=== PATIENT | male | born 1995 | race Caucasian/White ===

== ENCOUNTER 2017-01-28 02:07 | Emergency (ER) | payer OTHER ==
[~2017-01-28] VITALS: Ht 177.8 cm; Wt 66.0 kg
[2017-01-28 02:09] VITALS: TEMP 37.4; O2SAT 98; Ht 177.8 cm; Wt 66.0 kg
[2017-01-28] MEDS ORDERED: KETOROLAC TROMETHAMINE 30 MG/ML VIAL IV STA (02:31)
[2017-01-28] MEDS ORDERED: ACETAMINOPHEN 500 MG TAB PO STA (02:31)
[2017-01-28 02:40] VITALS: O2SAT 98
[2017-01-28] MEDS ORDERED: SODIUM CHLORIDE 0.9% 1000ML 1,000 ML IV ONE (02:45)
[2017-01-28 03:03] LABS: BASO % 0.1 %; BASO ABS # 0.01 K/uL (0-0.2); COMPLETE YES; EOS % 0.3 %; HEMATOCRIT 43.3 % (42-52); IG% 0.3 %; LYMPH % 5.3 %; LYMPH ABS # 0.76 K/uL (1.2-3.4); MEAN CELL VOLUME 79.3 fL (80-100); MEAN CORPUSCULAR HEMOGLOBIN 25.6 pg (25-34); MEAN CORPUSCULAR HGB CONC 32.3 g/dl (32-36); MEAN PLATELET VOLUME 11.1 fL (7.4-10.4); MONO % 7.2 %; NEUT % 86.8 %; PLATELET COUNT 258 K/uL (130-400); RED BLOOD COUNT 5.46 M/uL (4.7-6.1)
[2017-01-28] MEDS ORDERED: DEXT1CAP9 PO (03:18)
[2017-01-28] MEDS ORDERED: DEXT1CAP8 PO (03:18)
[2017-01-28] MEDS ORDERED: IBUP-1050 PO (03:18)
[2017-01-28 03:22] LABS: BUN/CREATININE RATIO 8.7 (10-20); CALCIUM 9.1 mg/dl (8.5-10.1); CREATININE 1.1 mg/dl (0.60-1.40); POTASSIUM 3.9 mmol/L (3.5-5.1)
[2017-01-28 04:12] VITALS: BP 97/62; PULSE 86
[2017-01-28] MEDS ORDERED: AZIT250T PO (04:27)
[2017-01-28] MEDS ORDERED: AZITHROMYCIN 250 MG TAB PO ONE (04:30)
--- NOTE | 2017-01-28 06:35 | DIAGNOSTIC IMAGING REPORT ---
CT HEAD WITHOUT CONTRAST (CT) CLINICAL HISTORY: Syncope COMPARISON STUDY: 03/25/2013 TECHNIQUE: Axial CT of the brain is performed from the vertex to the skull base. IV contrast was not administered for this examination. A dose lowering technique was utilized adhering to the principles of ALARA. CT DOSE: 537.48 mGy.cm FINDINGS: No intra or extra-axial mass lesions are visualized. There is no CT evidence of acute cortical infarction. There is no evidence of midline shift. There is no acute hemorrhage. No calvarial fractures are visualized. There is a prominent cisterna magna. There is a prominent cortical sulcus versus chronic area of encephalomalacia involving the left occipital lobe. There is no evidence of pathologic ventricular dilatation. There is no evidence of acute sinusitis IMPRESSION: No acute intracranial findings Electronically signed by: Wagner Steiner M.D. 01/28/2017 6:33 AM Dictated Date/Time: 01/28/2017 6:32 AM
--- NOTE | 2017-01-28 06:45 | DIAGNOSTIC IMAGING REPORT ---
CHEST 2 VIEWS ROUTINE CLINICAL HISTORY: Fever, flulike symptoms, syncope. COMPARISON STUDY: No previous studies for comparison. FINDINGS: The cardiac and mediastinal contours are normal. There is no evidence of focal pulmonary consolidation. There is no evidence of failure. No pleural effusions are visualized.[ IMPRESSION: No active disease in the chest. Electronically signed by: Wagner Steiner M.D. 01/28/2017 6:44 AM Dictated Date/Time: 01/28/2017 6:43 AM
--- NOTE | 2017-01-29 03:09 | EMERGENCY ROOM VISIT NOTE ---
History First contact with patient: 02:22 Chief Complaint: FLU LIKE SX Stated Complaint: RESPIRATORY INFECTION, SYNCOPE, MERINO History of Present Illness The patient is a 21 year old male who presents to the Emergency Room with complaints of URI symptoms for the past one day. The patient states that he has had a low-grade fever and headache over the past one day. He went to an urgent care clinic near his home and was diagnosed with a viral infection. The patient went home and went to bed. He states that he got up today, went to the bathroom, and believes that he had a syncopal episode. He does have a mild headache. The patient is complaining of some minimal sore throat symptoms, but states that he had a rapid strep performed a few hours ago that was negative. The patient does not have lightheadedness or dizziness. No chest pain, chest tightness, shortness of breath, palpitations, or abdominal discomfort before after the event. He considers himself usually healthy and rates his discomfort a 7/10. Review of Systems More than 10 systems were reviewed and otherwise negative with the exception of history of present illness. Past Medical/Surgical History No chronic medical disease Family History No pertinent family history Social History Smoking Status: Former Smoker Drug Use: none Occupation Status: employed Current/Historical Medications Scheduled Azithromycin (Zithromax), 250 MG PO DAILY Scheduled PRN Kpvzyzgzweclueco-Ctwzbcppdf-Rg (Vicks Nyquil Cold & Flu), 1 CAP PO DIRECTED PRN for COLD & FLU Dextromethorphan-Phenylephrine (Vicks Dayquil Cold & Flu), 1 CAP PO DIRECTED PRN for COLD & FLU Ibuprofen (Advil), 200 MG PO DIRECTED PRN for Pain or Fever Physical Exam Vital Signs Date Time Temp Pulse Resp B/P (MAP) Pulse Ox O2 Delivery O2 Flow Rate FiO2 01/28/17 04:12 80 113/48 84 104/66 86 97/62 01/28/17 02:45 87 01/28/17 02:40 98 Room Air 01/28/17 02:09 37.4 113 20 97/53 98 Room Air Physical Exam VITALS: Vitals are noted on the nurse's note and reviewed by myself. Vital signs stable. GENERAL: Well-developed, well-nourished, white male, who is in no acute distress and resting comfortably. Patient is cooperative with the examination. HEAD: Normocephalic atraumatic. EARS: External ear normal. External auditory canals clear, tympanic membranes pearly ng without erythema or effusion bilaterally. EYES: Pupils equal round and reactive to light and accommodation. Conjunctivae without injection, sclerae without icterus. Extraocular movements intact. NOSE: Patent, turbinates without inflammation or discharge. MOUTH: Mucous membranes moist. Tonsils are not enlarged. Pharynx without erythema, blood, or exudate. Uvula midline. Airway patent. NECK: Supple without nuchal rigidity. No lymphadenopathy. No thyromegaly. Cervical spine is nontender. HEART: Regular rate and rhythm without murmurs gallops or rubs. LUNGS: Clear to auscultation bilaterally without wheezes, rales or rhonchi. No retractions or accessory muscle use. ABDOMEN: Positive normal bowel sounds x 4. Soft, nontender, without masses or organomegaly. No guarding or rebound tenderness. MUSCULOSKELETAL: No muscle atrophy, erythema, or edema noted. Full range of motion without joint tenderness in all extremities. No tenderness to palpation. Normal gait. Strength 5/5 throughout. NEURO: Patient was alert and oriented to person place and time. CN II through XII grossly intact. Deep tendon reflexes 2+ throughout. No focal neurological deficits SKIN: The skin was without rashes, erythema, edema, or bruising. Capillary reflex less than 2 seconds. Medical Decision & Procedures ER Provider Diagnostic Interpretation: CT HEAD WITHOUT CONTRAST (CT) CLINICAL HISTORY: Syncope COMPARISON STUDY: 03/25/2013 TECHNIQUE: Axial CT of the brain is performed from the vertex to the skull base. IV contrast was not administered for this examination. A dose lowering technique was utilized adhering to the principles of ALARA. CT DOSE: 537.48 mGy.cm FINDINGS: No intra or extra-axial mass lesions are visualized. There is no CT evidence of acute cortical infarction. There is no evidence of midline shift. There is no acute hemorrhage. No calvarial fractures are visualized. There is a prominent cisterna magna. There is a prominent cortical sulcus versus chronic area of encephalomalacia involving the left occipital lobe. There is no evidence of pathologic ventricular dilatation. There is no evidence of acute sinusitis IMPRESSION: No acute intracranial findings CHEST 2 VIEWS ROUTINE CLINICAL HISTORY: Fever, flulike symptoms, syncope. COMPARISON STUDY: No previous studies for comparison. FINDINGS: The cardiac and mediastinal contours are normal. There is no evidence of focal pulmonary consolidation. There is no evidence of failure. No pleural effusions are visualized.[ IMPRESSION: No active disease in the chest. Laboratory Results 01/28/17 02:43 Red Blood Count 5.46, Mean Corpuscular Volume 79.3, Mean Corpuscular Hemoglobin 25.6, Mean Corpuscular Hemoglobin Concent 32.3, Mean Platelet Volume 11.1, Neutrophils (%) (Auto) 86.8, Lymphocytes (%) (Auto) 5.3, Monocytes (%) (Auto) 7.2, Eosinophils (%) (Auto) 0.3, Basophils (%) (Auto) 0.1, Neutrophils # (Auto) 12.51, Lymphocytes # (Auto) 0.76, Monocytes # (Auto) 1.04, Eosinophils # (Auto) 0.04, Basophils # (Auto) 0.01 01/28/17 02:43 Test 01/28/17 02:40 01/28/17 02:43 01/28/17 02:52 Influenza Type A Antigen Neg for Influ A (NEG) Influenza Type B Antigen Neg for Influ B (NEG) White Blood Count 14.40 K/uL (4.8-10.8) Red Blood Count 5.46 M/uL (4.7-6.1) Hemoglobin 14.0 g/dL (14.0-18.0) Hematocrit 43.3 % (42-52) Mean Corpuscular Volume 79.3 fL (80-100) Mean Corpuscular Hemoglobin 25.6 pg (25-34) Mean Corpuscular Hemoglobin Concent 32.3 g/dl (32-36) Platelet Count 258 K/uL (130-400) Mean Platelet Volume 11.1 fL (7.4-10.4) Neutrophils (%) (Auto) 86.8 % Lymphocytes (%) (Auto) 5.3 % Monocytes (%) (Auto) 7.2 % Eosinophils (%) (Auto) 0.3 % Basophils (%) (Auto) 0.1 % Neutrophils # (Auto) 12.51 K/uL (1.4-6.5) Lymphocytes # (Auto) 0.76 K/uL (1.2-3.4) Monocytes # (Auto) 1.04 K/uL (0.11-0.59) Eosinophils # (Auto) 0.04 K/uL (0-0.5) Basophils # (Auto) 0.01 K/uL (0-0.2) RDW Standard Deviation 39.9 fL (36.4-46.3) RDW Coefficient of Variation 14.0 % (11.5-14.5) Immature Granulocyte % (Auto) 0.3 % Immature Granulocyte # (Auto) 0.04 K/uL (0.00-0.02) Anion Gap 7.0 mmol/L (3-11) Est Creatinine Clear Calc Drug Dose 99.2 ml/min Estimated GFR () 110.6 Estimated GFR (Non- 95.5 BUN/Creatinine Ratio 8.7 (10-20) Calcium Level 9.1 mg/dl (8.5-10.1) Total Bilirubin 0.6 mg/dl (0.2-1) Aspartate Amino Transf (AST/SGOT) 50 U/L (15-37) Alanine Aminotransferase (ALT/SGPT) 83 U/L (12-78) Alkaline Phosphatase 164 U/L (45-117) Total Protein 7.3 gm/dl (6.4-8.2) Albumin 3.6 gm/dl (3.4-5.0) Globulin 3.7 gm/dl (2.5-4.0) Albumin/Globulin Ratio 1.0 (0.9-2) Monoscreen NEG (NEG) Bedside Troponin I < 0.030 ng/ml (0-0.045) Medications Administered Medications (Trade) Dose Ordered Sig/Reginald Route Start Time Stop Time Status Last Admin Dose Admin Acetaminophen (Tylenol Tab) 1,000 mg NOW STAT PO 01/28/17 02:31 01/28/17 02:33 DC 01/28/17 02:56 1,000 MG Sodium Chloride 1,000 ml @ 999 mls/hr Q1H1M ONCE IV 01/28/17 02:45 01/28/17 03:45 DC 01/28/17 02:56 999 MLS/HR Ketorolac Tromethamine (Toradol Inj) 30 mg NOW STAT IV 01/28/17 02:31 01/28/17 02:33 DC 01/28/17 02:55 30 MG Azithromycin (Zithromax Tab) 500 mg NOW ONCE PO 9/29/17 04:30 01/28/17 04:31 DC 01/28/17 04:33 500 MG ECG Change: Normal sinus rhythm @67 bpm Normal ECG When compared with ECG of 26-FEB-2016 22:32, No significant change was found Confirmed by STEVEN CHEN MD ([id number]) on 01/28/2017 1:02:34 PM ED Course Physical exam and history were performed. Nursing notes, EMR, and Medication List were personally reviewed. Patient appears to have URI symptoms for roughly the past one day. He had a vague syncopal episode versus fall versus other episode after trying to go the bathroom tonight. On examination the patient appears well since early nontoxic. IV access was established and labs were obtained. Patient was hydrated and medicated as above. EKG was without significant findings. Because of his symptoms I did elect to perform a CT scan of his head. The patient's blood work is as above and was reviewed. He does have an elevated white blood cell count of 16,000. He does not have a significant anemia or gross electrolyte imbalance. Troponin1 is negative. CT scan does not show acute findings. X-rays also without significant findings. Influenza swabs are negative. Monospot is negative. His LFTs are mildly elevated. Overall the patient did feel better after intervention here in the department. He certainly does not have signs of meningitis or encephalitis. His symptoms are likely viral in nature and he may have had a vagal episode tonight. He does have an elevated white blood cell count however, I will start him on a short course of Zithromax. I did have a discussion with patient regarding his elevated LFTs, and this may be related to alcohol consumption. The patient will need to have this followed up on by his primary care physician. He should have follow-up regardless for his symptoms tonight. He was otherwise invited back to the ER with any new, worsening, or concerning symptoms. The chart was completed utilizing [employer] Voice Recognition Software. Grammatical errors, random word insertions, pronoun errors, and incomplete sentences are an occasional consequence of this system due to software limitations, ambient noise, and hardware issues. Any formal questions or concerns about the content, text, or information contained within the body of this dictation should be directly addressed to the provider for clarification. . Medical Decision Differential diagnosis: Etiologies such as vasovagal event, infection, hypoglycemia, electrolyte abnormalities, cardiac sources, intracerebral event, toxicologic, neurologic, as well as others were entertained. Impression Primary Impression: Upper respiratory infection Additional Impression: Syncope Departure Information Dispostion Home / Self-Care Condition GOOD Prescriptions Azithromycin (Zithromax) 250 Mg Tab 250 MG PO DAILY for 4 Days, #4 TAB Prov: Mihir Cyr PA-C 01/28/17 Forms HOME CARE DOCUMENTATION FORM, Work Instructions, Additional Instructions: Patient was seen and evaluated today in the emergency department fo medical care. Return to work/school on 01/31/2017. Please excuse. IMPORTANT VISIT INFORMATION Patient Instructions My [facility] Additional Instructions You were seen and evaluated today on an emergency basis only. This is not a substitute for, or an effort to provide, complete comprehensive medical care. It is not possible to recognize and treat all injuries or illnesses in a single emergency department visit. For this reason it is recommended that you followup with your primary care physician next week for ongoing care and evaluation. Take Zithromax 250 mg daily for the next 4 days. For baseline pain relief you may alternate ibuprofen and acetaminophen every 4 hours for pain control. Take 600 mg ibuprofen (Advil) and then 4 hours later take 1000 mg acetaminophen (Tylenol). Do not take more than 3000 mg acetaminophen in a single day. You are welcome to return to the emergency department anytime with new, worsening, or concerning symptoms. Work Instructions Additional Work Instructions: Patient was seen and evaluated today in the emergency department for medical care. Return to work/school on 01/31/2017. Please excuse. Problem Qualifiers
== END 2017-01-28 04:36 | disposition home or self-care (01) ==
LOC: C.EDB 02:08 → C.EDC 04:36
DX: J06.9 Acute upper respiratory infection, unspecified (principal); R55 Syncope and collapse; Z87.891 Personal history of nicotine dependence

== ENCOUNTER 2017-07-29 04:50 | Emergency (ER) | payer OTHER ==
[~2017-07-29] VITALS: Ht 177.8 cm; Wt 67.1 kg
[~2017-07-29 04:50] MED LIST: DEXT1CAP8 PO; DEXT1CAP9 PO; IBUP-1050 PO
[2017-07-29 04:53] VITALS: TEMP 36.6; Ht 177.8 cm; Wt 67.1 kg
[2017-07-29] MEDS ORDERED: SODIUM CHLORIDE 0.9% 1000ML 1,000 ML IV STA (05:01)
[2017-07-29] MEDS ORDERED: ONDANSETRON INJ 2 MG/ML 2 ML VIAL IV STA (05:01)
[2017-07-29] MEDS ORDERED: MULT-506 PO (05:07)
[2017-07-29] MEDS ORDERED: DICYCLOMINE HCL 10 MG/ML 2 ML AMP IM ONE (05:15)
[2017-07-29 05:58] VITALS: O2SAT 98
[2017-07-29 05:58] LABS: BASO % 0.2 %; BASO ABS # 0.01 K/uL (0-0.2); EOS % 2.6 %; EOS ABS # 0.13 K/uL (0-0.5); HEMOGLOBIN 14.9 g/dL (14.0-18.0); IG# 0.01 K/uL (0.00-0.02); LYMPH % 35.4 %; LYMPH ABS # 1.75 K/uL (1.2-3.4); MEAN CELL VOLUME 79.7 fL (80-100); MEAN CORPUSCULAR HGB CONC 33.9 g/dl (32-36); MEAN PLATELET VOLUME 11.2 fL (7.4-10.4); MONO % 9.9 %; MONO ABS # 0.49 K/uL (0.11-0.59); NEUT % 51.7 %; NEUT ABS # 2.56 K/uL (1.4-6.5); PLATELET COUNT 266 K/uL (130-400); RED CELL DISTRIBUTION WIDTH CV 13.5 % (11.5-14.5); RED CELL DISTRIBUTION WIDTH SD 39.7 fL (36.4-46.3); WHITE BLOOD COUNT 4.95 K/uL (4.8-10.8)
[2017-07-29 06:17] LABS: ALBUMIN 4.1 gm/dl (3.4-5.0); CALCIUM 9.5 mg/dl (8.5-10.1); CREATININE 1.03 mg/dl (0.60-1.40); POTASSIUM 3.5 mmol/L (3.5-5.1)
[2017-07-29 06:19] LABS: TOTAL PROTEIN 7.9 gm/dl (6.4-8.2)
--- NOTE | 2017-07-29 06:34 | EMERGENCY ROOM VISIT NOTE ---
History First contact with patient: 04:59 Chief Complaint: ABDOMINAL PAIN Stated Complaint: STOMACHE ISSUE,PAIN Nursing Triage Summary: Patient reports mid abdominal pain x 1 week with diarrhea and nausea. History of Present Illness The patient is a 22 year old male who presents to the Emergency Room with complaints of nausea and diarrhea with lower abdominal cramping for the past few days. No recent antibiotics. No well water. Pain currently 3 out of 10 to the lower abdomen. Patient denies testicular pain, penile pain, urinary symptoms, vomiting, fever, chills, cough, congestion. No history of IBS. No family history of inflammatory bowel disease. No prior colonoscopy. Review of Systems An 10 system review of systems was completed with positives and pertinent negatives listed in the HPI. Past Medical/Surgical History None Social History Smoking Status: Former Smoker Drug Use: none Occupation Status: employed Current/Historical Medications Scheduled Multivitamin (Multivitamin), 1 TAB PO DAILY Physical Exam Vital Signs Date Time Temp Pulse Resp B/P (MAP) Pulse Ox O2 Delivery O2 Flow Rate FiO2 07/29/17 05:58 98 Room Air 07/29/17 04:53 36.6 88 16 148/87 100 Room Air Physical Exam VITALS: Vitals are noted on the nurse's note and reviewed by myself. Vital signs hypertensive GENERAL: Pleasant male, in no acute distress, nondiaphoretic, well-developed well-nourished. SKIN: The skin was without rashes, erythema, edema, or bruising. There is no tenting of the skin. Capillary reflex less than 2 seconds. HEAD: Normocephalic atraumatic. EARS: External auditory canals clear, tympanic membranes pearly ng without erythema or effusion bilaterally. EYES: Pupils equal round and reactive to light and accommodation. Conjunctivae without injection, sclerae without icterus. Extraocular movements intact. NOSE: Patent, turbinates without inflammation or discharge. MOUTH: Mucous membranes moist. Pharynx without erythema or exudate. Uvula midline. Airway patent. Tongue does not deviate. NECK: Supple without nuchal rigidity. No lymphadenopathy. No thyromegaly. Cervical spine is nontender. No JVD. HEART: Regular rate and rhythm without murmurs gallops or rubs. LUNGS: Clear to auscultation bilaterally without wheezes, rales or rhonchi. No retractions or accessory muscle use. ABDOMEN: Positive bowel sounds x 4. Normal tympanic percussion. Soft, nontender, without masses or organomegaly. Gonzalez sign negative. No guarding or rebound tenderness. No CVA tenderness MUSCULOSKELETAL: No muscle atrophy, erythema, or edema noted. NEURO: Patient was alert and oriented to person place and time. Normal sensation to light and sharp touch. No focal neurological deficits. Medical Decision & Procedures Laboratory Results 07/29/17 05:45 Red Blood Count 5.52, Mean Corpuscular Volume 79.7, Mean Corpuscular Hemoglobin 27.0, Mean Corpuscular Hemoglobin Concent 33.9, Mean Platelet Volume 11.2, Neutrophils (%) (Auto) 51.7, Lymphocytes (%) (Auto) 35.4, Monocytes (%) (Auto) 9.9, Eosinophils (%) (Auto) 2.6, Basophils (%) (Auto) 0.2, Neutrophils # (Auto) 2.56, Lymphocytes # (Auto) 1.75, Monocytes # (Auto) 0.49, Eosinophils # (Auto) 0.13, Basophils # (Auto) 0.01 07/29/17 05:45 Test 07/29/17 05:35 07/29/17 05:45 Urine Color DK YELLOW Urine Appearance CLEAR (CLEAR) Urine pH 5.5 (4.5-7.5) Urine Specific [place] 1.026 (1.000-1.030) Urine Protein NEG (NEG) Urine Glucose (UA) NEG (NEG) Urine Ketones TRACE (NEG) Urine Occult Blood NEG (NEG) Urine Nitrite NEG (NEG) Urine Bilirubin NEG (NEG) Urine Urobilinogen NEG (NEG) Urine Leukocyte Esterase NEG (NEG) White Blood Count 4.95 K/uL (4.8-10.8) Red Blood Count 5.52 M/uL (4.7-6.1) Hemoglobin 14.9 g/dL (14.0-18.0) Hematocrit 44.0 % (42-52) Mean Corpuscular Volume 79.7 fL (80-100) Mean Corpuscular Hemoglobin 27.0 pg (25-34) Mean Corpuscular Hemoglobin Concent 33.9 g/dl (32-36) Platelet Count 266 K/uL (130-400) Mean Platelet Volume 11.2 fL (7.4-10.4) Neutrophils (%) (Auto) 51.7 % Lymphocytes (%) (Auto) 35.4 % Monocytes (%) (Auto) 9.9 % Eosinophils (%) (Auto) 2.6 % Basophils (%) (Auto) 0.2 % Neutrophils # (Auto) 2.56 K/uL (1.4-6.5) Lymphocytes # (Auto) 1.75 K/uL (1.2-3.4) Monocytes # (Auto) 0.49 K/uL (0.11-0.59) Eosinophils # (Auto) 0.13 K/uL (0-0.5) Basophils # (Auto) 0.01 K/uL (0-0.2) RDW Standard Deviation 39.7 fL (36.4-46.3) RDW Coefficient of Variation 13.5 % (11.5-14.5) Immature Granulocyte % (Auto) 0.2 % Immature Granulocyte # (Auto) 0.01 K/uL (0.00-0.02) Anion Gap 7.0 mmol/L (3-11) Est Creatinine Clear Calc Drug Dose 106.8 ml/min Estimated GFR () 119.0 Estimated GFR (Non- 102.6 BUN/Creatinine Ratio 13.7 (10-20) Calcium Level 9.5 mg/dl (8.5-10.1) Total Bilirubin 0.4 mg/dl (0.2-1) Direct Bilirubin 0.1 mg/dl (0-0.2) Aspartate Amino Transf (AST/SGOT) 24 U/L (15-37) Alanine Aminotransferase (ALT/SGPT) 50 U/L (12-78) Alkaline Phosphatase 106 U/L (45-117) Total Protein 7.9 gm/dl (6.4-8.2) Albumin 4.1 gm/dl (3.4-5.0) Medications Administered Medications (Trade) Dose Ordered Sig/Reginald Route Start Time Stop Time Status Last Admin Dose Admin Dicyclomine HCl (Bentyl Inj) 20 mg NOW ONCE IM 07/29/17 05:15 07/29/17 05:16 DC 07/29/17 05:54 20 MG Sodium Chloride 1,000 ml @ 999 mls/hr Q1H1M STAT IV 07/29/17 05:01 07/29/17 06:01 DC 07/29/17 05:54 999 MLS/HR Ondansetron HCl (Zofran Inj) 4 mg NOW STAT IV 07/29/17 05:01 07/29/17 05:03 DC 07/29/17 05:54 4 MG ED Course Prior records/ancillary studies reviewed. Triage Nursing notes reviewed. Additional history obtained from the family. The patient's history was concerning for nausea, diarrhea, and abdominal pain. Differential diagnosis: Etiologies such as gastroenteritis, food borne illness, infections, appendicitis , diverticulitis, inflammatory bowel disease, obstruction, GI bleed, biliary pathology, as well as others were entertained. Physical examination findings: As above. Abdominal examination revealed no tenderness. Vital signs reviewed and revealed stable. ER treatment provided: IV hydration 1 L NSS. Gunner Tejeda On reassessment the patient felt better. Patient was tolerating p.o. intake. Diagnostics interpretation by me: The labs revealed no worrisome leukocytosis or electrolyte abnormality This appears to be consistent with abdominal cramping and diarrhea that could be related to IBS. Mother states child has had problems with his stomach for years. They have not seen a GI doctor. They are encouraged to follow-up with one and keep a diary of the diet and what triggers his flares. Patient was neurovascularly and neurologically intact. Patient did not have acute abdomen on exam. He is well-appearing. He was advised to rest, stay well hydrated, do a bland diet and follow-up family care in a few days or here in the ER sooner for abdominal pain, fevers, vomiting, worsening signs or symptoms or as needed. By the evaluation outlined above emergent etiologies such as appendicitis, diverticulitis, obstruction, cardiac sources, mesenteric ischemia, aortic pathology, inflammatory bowel disease, renal colic, PUD, biliary pathology, UTI , as well as others were deemed relatively unlikely. The pt informed about the findings as listed above. All questions were answered and pleased with the treatment. Return instructions were outlined and the patient was discharged in stable condition. Outpatient prescription management: Ileana Martino Referral: The patient was referred to their primary care physician for follow-up in 2 to 3 days for a recheck of the current condition. The chart was completed utilizing [employer] voice recognition software. Grammatical errors, random word insertions, pronoun errors, and incomplete sentences are an occassional consequence of this system due to software limitations, ambient noise, and hardware issues. Any formal questions or concerns about the content, text, or information contained within the body of this dictation should be directly addressed to the physician obstetric assistant for clarification. Medical Decision as above Medication Reconcilliation Current Medication List: was personally reviewed by me Blood Pressure Screening Patient's blood pressure: Normal blood pressure Impression Primary Impression: Abdominal cramping Additional Impression: Diarrhea Departure Information Dispostion Home / Self-Care Condition GOOD Referrals No Doctor, Assigned (PCP) Patient Instructions My [facility] Additional Instructions Bentyl 10mg: Take one every six hours as needed for abdominal cramping. Avoid alcohol, operating machinery or dangerous equipment, working on ladders or roofs , DRIVING, or situations where being under the influence may be dangerous. Zofran(odansetron) tablets 4mg: Take one and allow it to dissolve in your mouth every four to six hours as needed for nausea or vomiting. Ibuprofen(Motrin, Advil) may be used for fever or pain. Use 600mg every six hours as needed. Take with food. Avoid using more than 2400mg in a 24 hour period. Do not use 2400mg per day for more than three consecutive days without physician direction. Prolonged inappropriate use can lead to stomach upset or ulcers. (AND/OR) Acetaminophen(Tylenol) may be used for fever or pain. Use 1000mg every six hours as needed. Avoid using more than 4000mg in a 24 hour period. Keep a diary of your food intake and what triggers your symptoms. Recommend referral to GI for further evaluation and workup for your symptoms. Rest and drink plenty of fluids as tolerated. Slow sips of water or sports drinks are recommended instead of large amounts all at once. Continue current medications. Avoid processed foods, foods with high sugars and fat. Return to the ER for persistent vomiting, fevers, abdominal pain, chest pains, difficulty breathing, black or bloody stools, worsening of your condition, or as needed. Follow up with your primary physician in 2-3 days for a recheck of your current condition. Problem Qualifiers
[2017-07-29] MEDS ORDERED: DICY10CA55 PO (06:35)
[2017-07-29] MEDS ORDERED: BENTYL HOME PACK 10 MG VIAL PO ONE (06:45)
[2017-07-29] MEDS ORDERED: ONDANSETRON HOME PACK 4MG OD TAB PO ONE (06:45)
[2017-07-29 06:51] VITALS: BP 134/72; PULSE 87; O2SAT 97
== END 2017-07-29 06:52 | disposition home or self-care (01) ==
LOC: C.EDB 04:51 → C.EDA 06:52
DX: R10.30 Lower abdominal pain, unspecified (principal); R19.7 Diarrhea, unspecified; R11.0 Nausea; Z87.891 Personal history of nicotine dependence